=== PATIENT | male | born 1970 | race Caucasian/White ===

== ENCOUNTER 2021-03-13 16:56 | Emergency (ER) | payer BC, OTHER ==
[~2021-03-13] VITALS: Ht 177.8 cm; Wt 81.1 kg
[2021-03-13 16:56] VITALS: BP 135/86
[2021-03-13] MEDS ORDERED: EXCETAB33 PO (17:19)
--- NOTE | 2021-03-13 17:54 | REPVR ---
PROCEDURE INFORMATION: Exam: CT Head Without Contrast Exam date and time: 03/13/2021 5:26 PM Age: 50 years old Clinical indication: Pain; Headache TECHNIQUE: Imaging protocol: Computed tomography of the head without contrast. Radiation optimization: All CT scans at this facility use at least one of these dose optimization techniques: automated exposure control; mA and/or kV adjustment per patient size (includes targeted exams where dose is matched to clinical indication); or iterative reconstruction. COMPARISON: No relevant prior studies available. FINDINGS: Brain: There is no evidence of infarct, martinez-white matter differentiation is preserved. There is no hemorrhage or extra-axial collection. There is no mass. No evidence of subarachnoid hemorrhage. No evidence of cerebral edema. Cerebral ventricles: There is no hydrocephalus. Paranasal sinuses: Visualized sinuses are unremarkable. No fluid levels. Mastoid air cells: Visualized mastoid air cells are well aerated. Bones/joints: Unremarkable. No acute fracture. Soft tissues: Unremarkable. IMPRESSION: No intracranial lesion or injury Electronically signed by: Jackson Leblanc On 03/13/2021 17:53:42 PM
[2021-03-13] MEDS ORDERED: TOPA50TA8 PO (18:40)
[2021-03-13] MEDS ORDERED: TOPI50TA9 PO (18:45)
== END 2021-03-13 19:32 | disposition home or self-care (01) ==
LOC: M ED 16:56
DX: G43.109 Migraine with aura, not intractable, without status migrainosus (principal); Z88.0 Allergy status to penicillin; Z79.82 Long term (current) use of aspirin; Z79.899 Other long term (current) drug therapy

== ENCOUNTER → 2022-04-26 | Outpatient (CLI) | payer BC ==
[~2022-04-26] MED LIST: EXCETAB32 PO; IBUP80TA PO; RIME75TA PO; SUMA100T2 PO; TOPA50TA8 PO; TOPI50TA9 PO
== END ==
LOC: M LABSMTC 10:47
PROVIDERS: ATTEND Anesthesiology
DX: Z01.818 Encounter for other preprocedural examination (principal); Z11.52 Encounter for screening for COVID-19

== ENCOUNTER 2022-04-30 10:20 | Day surgery (SDC) | payer BC ==
[~2022-04-30] VITALS: Ht 175.3 cm; Wt 78.5 kg
[~2022-04-30 10:20] MED LIST changes: +NS 1,000 ML IV ONE
[2022-04-30] MEDS ORDERED: LIDOCAINE 2% 100MG/5ML SDV (FOR ANES.) As Ordered ONE (12:08)
[2022-04-30] MEDS ORDERED: propofoL 200 MG/20 ML VIAL As Ordered ONE (12:08)
[2022-04-30 12:35] VITALS: BP 123/82
== END 2022-04-30 12:47 | disposition home or self-care (01) ==
LOC: M OPP 10:20
PROVIDERS: ATTEND Surgery
DX: Z12.11 Encounter for screening for malignant neoplasm of colon (principal); K63.5 Polyp of colon; D17.5 Benign lipomatous neoplasm of intra-abdominal organs; G43.909 Migraine, unspecified, not intractable, without status migrainosus; Z79.899 Other long term (current) drug therapy; Z88.0 Allergy status to penicillin; Z88.1 Allergy status to other antibiotic agents; Z85.828 Personal history of other malignant neoplasm of skin